=== PATIENT | female | born 1970 | race Hispanic/Latino ===

== ENCOUNTER 2021-05-12 21:48 | Emergency (ER) | payer SELFPAY ==
--- OUTSIDE RECORDS SUMMARY | 2021-05-12 21:51 | XMS REPORT | Continuity of Care Document ---
:1970 Author Organization [facility] t Address [facility] [address] [place] [address] Care Team Providers Name Role Phone JONO, Chai Primary Care Physician Unavailable JONO A Attending Clinician Unavailable Chai JAMESON Attending Clinician Unavailable Chai Schafer Attending Clinician Fidencio GOMEZ III Attending Clinician Unavailable ROSEMARIE Attending Clinician Unavailable Payers Payer Name Policy Type Policy Number Effective Date Expiration Date [id number] 2020 00:00:00 OUT OF STATE Problems Condition Condition Condition Status Onset Resolution Last Treating Co mments Source Name Details Category Date Date Treatment Clinician Date Gastroesop Gastroesop Disease Active 2019-0 U nivers hageal hageal 4-20 ity of reflux reflux 00:00: [place] disease, disease, 00 Medica l esophagiti esophagiti Br anch s presence s presence not not specified specified Upper back Upper back Disease Active 2020-0 U nivers pain pain 4-20 ity of 00:00: [place] [address] Medical Branch Epicondyli Epicondyli Disease Active 2019-0 U nivers tis elbow, tis elbow, 5-02 it y of medial, medial, 00:00: [place] right right 00 Medical Branch Prediabete Prediabete Disease Active 2016-03 U nivers s s 2-21 ity of 00:00: [place] 00 Medical Branch Hyperchole Hyperchole Disease Active 2016-03 U nivers sterolemia sterolemia 2-21 it y of 00:00: [place] [address] Medical Branch Urinary Urinary Disease Active Univers frequency frequency 9-09 ity of 00:00: [place] 00 Medical Branch Insomnia, Insomnia, Disease Active Uni vers unspecifie unspecifie 9-07 it y of d type d type 00:00: [place] [address] [facility] Branch Vasomotor Vasomotor Disease Active Uni vers symptoms symptoms 12-03 ity of due to due to 00:00: [place] menopause menopause 00 [facility] Branch Anxiety Anxiety Disease Active Univers disorder, disorder, 12-03 it[place]spec[place] 00 [facility] Postmenopa Postmenopa Disease Active U nivers usal usal 10-24 ity of 00:00: [place] [address] [facility] Branch Uterine Uterine Disease Active Univers leiomyoma, leiomyoma, 10-24 it y of unspecifie [place] dical Branch History of History of Disease Active U nivers anemia anemia 10-24 ity of 00:00: [place] 00 [facility] Allergies, Adverse Reactions, Alerts Allergy Allergy Status Severity Reaction(s) Onset Inactive Treating Comm ents Source Name Type Date Date Clinician NO KNOWN Drug Active Univers ALLERGIE Class ity of S [facility] Social History Social Habit Start Date Stop Date Quantity Comments Source Exposure to Yes [facility] SARS-CoV-2 (event) Medica l Branch Alcohol intake 2021-04-03 2021-04-03 0 /d [facility] 00:00:00 00:00:00 [facility] Sex Ass[birth year] At [birth year] [facility] y of [place] 00:00:00 00:00:00 [facility] Smoking Status Start Date Stop Date Source Never smoker [facility] Medications Ordered Filled Start Stop Current Ordering Indication Dosage Frequency Signature Comments Components Source Medication Medication Date Date Medication? Clinician (SIG) Name Name benzonatate Yes [id number] 100mg Take 1 Univers (TESSALON 1-06 capsule by itDeb) 100 00:00: mouth [place] mg capsule 00 every 8 Medica l (eight) Branch hours as needed for Cough. azelastine Yes [id number] 1{spray Use 1 Univers 137 mcg 1-06 } Chana in ity of (0.1 %) 00:00: each [place] nasal spray 00 nostril 2 Med ical (two) Branch times daily. Use in each nostril as directed benzonatate Yes [id number] 100mg Take 1 Univers (TESSALON 1-06 capsule by itfilemon of PERLWebcrumbz) 100 00:00: mouth [place] mg capsule 00 every 8 Medica l (eight) Branch hours as needed for Cough. azelastine Yes [id number] 1{spray Use 1 Univers 137 mcg 1-06 } Chana in ity of (0.1 %) 00:00: each [place] nasal spray 00 nostril 2 Med ical (two) Branch times daily. Use in each nostril as directed benzonatate Yes [id number] 100mg Take 1 Univers (TESSALON 1-06 capsule by ity of [employer]crumbz) 100 00:00: mouth [place] mg capsule 00 every 8 Medica l (eight) Branch hours as needed for Cough. azelastine Yes [id number] 1{spray Use 1 Univers 137 mcg 1-06 } Chana in ity of (0.1 %) 00:00: each [place] nasal spray 00 nostril 2 Med ical (two) Branch times daily. Use in each nostril as directed Immunizations Ordered Filled Immunization Date Status Comments [facility] e Immunization Name Name SARS-COV-2 COVID-19 2020-07-22 Completed Unive rsity of MODERNA VACCINE 00:00:00 [facility] SARS-COV-2 COVID-19 2020-07-22 Completed Unive rsity of MODERNA VACCINE 00:00:00 [facility] SARS-COV-2 COVID-19 2020-07-22 Completed Unive rsity of MODERNA VACCINE 00:00:00 [facility] SARS-COV-2 COVID-19 2020-06-24 Completed Unive rsity of MODERNA VACCINE 00:00:00 [facility] SARS-COV-2 COVID-19 2020-06-24 Completed Unive rsity of MODERNA VACCINE 00:00:00 [facility] SARS-COV-2 COVID-19 2020-06-24 Completed Unive rsity of MODERNA VACCINE 00:00:00 [facility] TDAP 2012-03-29 Completed University 00:00:00 [facility] TDAP 2012-03-29 Completed [facility] 00:00:00 [facility] TDAP 2012-03-29 Completed University of 00:00:00 [facility] Vital Signs Vital Name Observation Time Observation Value Comments Source Systolic blood 2021-04-03 20:07:00 132 mm[Hg] Univer sity of pressure [facility] Diastolic blood 2021-04-03 20:07:00 82 mm[Hg] Unive rsity of pressure [facility] Heart rate 2021-04-03 20:07:00 85 /min [facility] Body temperature 2021-04-03 20:07:00 [facility].94 [facility] height 2021-04-03 20:07:00 154.9 cm [facility] Body weight 2021-04-03 20:07:00 54.976 kg [facility] BMI 2021-04-03 20:07:00 22.90 kg/m2 [facility] Oxygen saturation in 2021-04-03 20:07:00 97 /min [facility] Arterial blood by [facility] Pulse oximetry Branch Procedures This patient has no known procedures. Encounters Start End Encounter Admission Attending Care Care Encounter Source Date/Time Date/Time Type Type Clinicians Facility Department ID 2021-05-02 2021-05-02 Outpatient Michelle DE LA CRUZ [facility] [id number] Univers 13:45:00 13:45:00 WONDIFUL [id number] ity o f [facility] 2021-05-02 2021-05-02 Outpatient Michelle DE LA CRUZ [facility] [id number] Univers 13:45:00 13:45:00 WONDIFUL ity o f [facility] 2021-04-30 2021-04-30 Outpatient Michelle JAMESON [facility] [id number] Univers 11:30:00 11:30:00 [facility] [id number] [facility] 2021-04-30 2021-04-30 Outpatient Michelle JAMESON [facility] [id number] Univers 11:30:00 11:30:00 CHELSEY [facility] 2021-04-03 2021-04-03 Outpatient Michelle JAMESON [facility] [id number] Univers 14:54:49 23:59:00 CHELSEY [facility] 2021-04-03 2021-04-03 [facility] [id number] Univers 14:54:49 23:59:00 Encounter Chelsey Paula [facility]ALTH [id number] ity of [facility] [id number] Demian as CHENCHO?BLEA [id number] Tn kecia HOL[address] MEDICAL OFFICE [facility] 2021-04-03 2021-04-03 Office [facility] [id number] Univers 14:00:00 14:52:04 Visit Chelsey Paula HEALTH [id number] i ty of [place] [id number] Demian as CHENCHO?BLEA [id number] Tn kecia HOLDER [address] [facility] OFFICE [facility] 2021-04-02 2021-04-02 Outpatient Michelle GOMEZ III [facility] [id number] Univers 12:15:00 12:30:13 ISAAK ramirez [facility] 2021-04-01 2021-04-01 Outpatient Michelle HOUSTON [facility] [id number] Univers 09:00:00 09:00:00 PRIYA ramirez [facility] Results This patient has no known results.
[2021-05-12] MEDS ORDERED: ONDANSETRON 4 MG/2 ML VIAL ONE (22:48)
[2021-05-12] MEDS ORDERED: MECLIZINE HCL 12.5 MG TAB ONE (22:48)
[2021-05-12 23:22] LABS: Protime INR 1.02
[2021-05-12 23:28] LABS: Absolute Lymphocytes (CBC) 1.5 K/uL (0.7-4.9); Hematocrit 38.3 % (36.0-45.0); Lymphocytes % 14.5 % (15.3-44.8); MPV 7.6 fL (7.6-11.3); RBC Red Blood Cell Count 4.36 M/uL (3.86-4.86)
[2021-05-12 23:31] LABS: ALT/SGPT 22 U/L (12-78); AST/SGOT 13 U/L (15-37); Albumin 4.2 g/dL (3.4-5.0); Alkaline Phosphatase 82 U/L (45-117); BUN Blood Urea Nitrogen 18 mg/dL (7-18); Bicarbonate 27 mmol/L (21-32); Bilirubin Direct < 0.1 mg/dL (0-0.2); Bilirubin Total 0.3 mg/dL (0.2-1.0); Glucose Level 127 mg/dL (74-106); Magnesium 2.3 mg/dL (1.8-2.4); NT PRO-BNP 55 pg/mL (<125); Potassium 3.7 mmol/L (3.5-5.1); Protein, Total 7.9 g/dL (6.4-8.2); Sodium Level 135 mmol/L (136-145)
--- NOTE | 2021-05-13 00:09 | ER ---
Nurse's Notes [facility] Name: Nai Weber Age: 51 yrs Sex: Female : 1970 Arrival Date: 05/12/2021 Time: 21:52 Bed 6 Private MD: Diagnosis: Benign paroxysmal vertigo, left ear Presentation: 05/12 22:11 Chief complaint: Patient states: Dizziness since 5pm, with nausea. Burning in the st1 epigastric area which occurs after she eats. Coronavirus screen: Vaccine status: Patient reports receiving the 2nd dose of the covid vaccine. Moderna. Ebola Screen: No symptoms or risks identified at this time. Initial Sepsis Screen: Does the patient meet any 2 criteria? No. Patient's initial sepsis screen is negative. Risk Assessment: Do you want to hurt yourself or someone else? Patient reports no desire to harm self or others. 22:13 Method Of Arrival: Ambulatory st 22:13 Acuity: BHANU 3 st1 05/13 00:14 Initial Sepsis Screen: Does the patient have a suspected source of infection? No. as6 Patient's initial sepsis screen is negative. Onset of symptoms is unknown. Triage Assessment: 05/12 22:15 General: Appears in no apparent distress. comfortable, Behavior is calm, cooperative. st1 LICENSED OPTICIAN: 05/13 00:14 LMP N/A - NA as6 Historical: - Allergies: 05/12 22:14 No Known Allergies; st1 - PMHx: 22:14 None; st1 - Immunization history:: Adult Immunizations up to date, Flu vaccine is up to date. - Social history:: Patient/guardian denies using alcohol, street drugs, IV drugs, Smoking status: unknown. Screenin:11 Abuse screen: Denies threats or abuse. Denies injuries from another. Nutritional as6 screening: No deficits noted. Tuberculosis screening: No symptoms or risk factors identified. Fall Risk None identified. Assessment: 23:09 General: Appears in no apparent distress. comfortable, Behavior is calm, cooperative. as6 Pain: Denies pain. Neuro: Level of Consciousness is awake, alert, obeys commands, Oriented to person, place, time, situation. Cardiovascular: Capillary refill < 3 seconds Patient's skin is warm and dry. Respiratory: Airway is patent Trachea midline Respiratory effort is even, unlabored, Respiratory pattern is regular, symmetrical. Derm: Skin is intact. 23:10 General: pt initial complaint dizziness and nausea. at time of assessment pt denies as6 both. refused medications . Vital Signs: 22:13 BP 131 / 93; Pulse 89; Resp 16; Temp 97.4; Pulse Ox 100% on R/A; Weight 55.34 kg; st1 Height 5 ft. 1 in. (154.94 cm); Pain /; 23:08 BP 141 / 89; Pulse 76; Resp 20 S; Pulse Ox 100% on R/A; as6 23:53 BP 132 / 86; Pulse 83; Resp 18 S; Pulse Ox 100% on R/A; as6 22:13 Body Mass Index 23.05 (55.34 kg, 154.94 cm) st1 ED Course: 21:52 Patient arrived in ED. es 22:13 Triage completed. st1 22:15 Arm band placed on left wrist. st1 22:20 John Palma, MARLENE is Primary Nurse. as6 22:21 Shabbir Ho NP is PHCP. pm1 22:21 Avery Diggs MD is Attending Physician. pm1 22:56 XRAY Chest (1 view) In Process Unspecified. EDMS 23:11 Inserted saline lock: 20 gauge in right antecubital area, using aseptic technique. as6 Blood collected. 23:12 Placed in gown. Bed in low position. Call light in reach. Side rails up X2. Cardiac as6 monitor on. Pulse ox on. NIBP on. Warm blanket given. 23:13 CT Head Brain wo Cont In Process Unspecified. EDMS 05/13 00:14 No provider procedures requiring assistance completed. as6 00:26 IV discontinued, intact, bleeding controlled, No redness/swelling at site. Pressure as6 dressing applied. Administered Medications: 05/12 23:00 Not Given (Patient Refused): Meclizine 50 mg PO once as6 23:00 Not Given (Patient Refused): Zofran (Ondansetron) 4 mg IVP once; over 2 minutes as6 Outcome: 05/13 00:09 Discharge ordered by . pm1 00:26 Discharged to home ambulatory. as6 00:26 Condition: stable 00:26 Discharge instructions given to patient, Instructed on discharge instructions, follow up and referral plans. medication usage, Demonstrated understanding of instructions, follow-up care, medications, Prescriptions given X 2. 00:26 Patient left the ED. as6 Signatures: Dispatcher [employer] Lashawn Sandra Patrick INTERIOR DESIGN TEACHER INTERIOR DESIGN TEACHER pm1 John Palma RN RN as6 Sera Melo RN RN st1 Corrections: (The following items were deleted from the chart) 05/12 22:13 22:11 Method Of Arrival: Ambulatory st1 st1
--- NOTE | 2021-05-13 00:10 | EDPHYS ---
Physician Documentation [facility] Name: Nai Weber Age: 51 yrs Sex: Female : 1970 Arrival Date: 05/12/2021 Time: 21:52 Bed 6 Private MD: ED Physician Avery Diggs HPI: 05/12 22:39 This 51 yrs old Female presents to ER via Ambulatory with complaints of pm1 Dizziness, Nausea, Chest Pressure, Arm Pain. 22:39 The patient presents with dizziness. Onset: The symptoms/episode began/occurred 5 pm1 day(s) ago. Context: just prior to the episode the patient experienced left ear tinnitus. Modifying factors: The symptoms are alleviated by holding head still, lying down, the symptoms are aggravated by movement of head, changing position. Associated signs and symptoms: Pertinent negatives: abdominal pain, chest pain, shortness of breath. Severity of symptoms: in the emergency department the symptoms have improved. Patient's baseline: Neuro: alert and fully oriented, Motor: no deficits, Ambulation: walks without assistance, Speech: normal. The patient has not experienced similar symptoms in the past. The patient has not recently seen a physician. SENIOR C WEB DEVELOPER: 05/13 00:14 LMP N/A - NA as6 Historical: - Allergies: 05/12 22:14 No Known Allergies; st1 - PMHx: 22:14 None; st1 - Immunization history:: Adult Immunizations up to date, Flu vaccine is up to date. - Social history:: Patient/guardian denies using alcohol, street drugs, IV drugs, Smoking status: unknown. ROS: 22:39 Constitutional: Negative for fever, chills, and weight loss, Respiratory: Negative for pm1 shortness of breath, cough, wheezing, and pleuritic chest pain. 22:39 : Negative for injury, bleeding, discharge, and swelling, MS/Extremity: Negative for injury and deformity, Skin: Negative for injury, rash, and discoloration. 22:39 Cardiovascular: Positive for chest pain. 22:39 Abdomen/GI: Positive for nausea. 22:39 Neuro: Positive for dizziness, Negative for headache, numbness, tingling. 22:39 All other systems are negative. Exam: 22:39 Constitutional: This is a well developed, well nourished patient who is awake, alert, pm1 and in no acute distress. Head/Face: Normocephalic, atraumatic. 22:39 Abdomen/GI: Soft, non-tender, with normal bowel sounds. No distension or tympany. No guarding or rebound. No evidence of tenderness throughout. 22:39 Skin: Warm, dry with normal turgor. Normal color with no rashes, no lesions, and no evidence of cellulitis. MS/ Extremity: Pulses equal, no cyanosis. Neurovascular intact. Full, normal range of motion. 22:39 Eyes: Exam is negative for acute changes, Extraocular movements: no acute changes, Conjunctiva: no acute changes, Corneas: no acute changes, Sclera: no acute changes, icterus, is not appreciated, Nystagmus: bilateral with when looking right. 22:39 ENT: External ear(s): are unremarkable, Ear canal(s): are normal, TM's: are normal, Mouth: Lips: normal, moist, Oral mucosa: normal, pink and intact, moist. 22:39 Cardiovascular: Exam negative for acute changes, Rate: normal, Rhythm: regular, Pulses: no pulse deficits are appreciated, Heart sounds: normal, normal S1and S2. 22:39 Respiratory: Exam negative for acute changes, respiratory distress, shortness of breath, Breath sounds: are clear throughout. 22:39 Neuro: Exam negative for acute changes, Orientation: is normal, Mentation: is normal, Motor: is normal, moves all fours. Vital Signs: 22:13 BP 131 / 93; Pulse 89; Resp 16; Temp 97.4; Pulse Ox 100% on R/A; Weight 55.34 kg; st1 Height 5 ft. 1 in. (154.94 cm); Pain 1/10; 23:08 BP 141 / 89; Pulse 76; Resp 20 S; Pulse Ox 100% on R/A; as6 23:53 BP 132 / 86; Pulse 83; Resp 18 S; Pulse Ox 100% on R/A; as6 22:13 Body Mass Index 23.05 (55.34 kg, 154.94 cm) st1 MDM: 22:22 Patient medically screened. [facility] 05/13 00:08 Data reviewed: vital signs. Data interpreted: Pulse oximetry: on room air is 100 %. pm1 Interpretation: normal. Counseling: I had a detailed discussion with the patient and/or guardian regarding: the historical points, exam findings, and any diagnostic results supporting the discharge/admit diagnosis, lab results, radiology results, the need for outpatient follow up, to return to the emergency department if symptoms worsen or persist or if there are any questions or concerns that arise at home. 05/12 22:37 Order name: Basic Metabolic Panel; Complete Time: 23:54 pm1 05/12 22:37 Order name: CBC with Diff; Complete Time: 23:54 pm1 05/12 22:37 Order name: LFT's; Complete Time: 23:54 pm1 05/12 22:37 Order name: Magnesium; Complete Time: 23:54 pm1 05/12 22:37 Order name: NT PRO-BNP; Complete Time: 23:54 pm1 05/12 22:37 Order name: PT-INR; Complete Time: 23:28 pm05/12 22:37 Order name: Troponin HS; Complete Time: 23:54 pm1 05/12 22:37 Order name: XRAY Chest (1 view) pm05/12 22:37 Order name: EKG; Complete Time: 22:38 pm05/12 22:37 Order name: Cardiac monitoring; Complete Time: 23:00 pm05/12 22:37 Order name: EKG - Nurse/Tech; Complete Time: 22:40 pm05/12 22:37 Order name: CT Head Brain wo Cont pm05/12 22:37 Order name: IV Saline Lock; Complete Time: 23:00 pm1 05/12 22:37 Order name: Labs collected and sent; Complete Time: 23:00 pm05/12 22:37 Order name: O2 Per Protocol; Complete Time: 23:00 pm05/12 22:37 Order name: O2 Sat Monitoring; Complete Time: 23:00 pm1 Administered Medications: 05/12 23:00 Not Given (Patient Refused): Meclizine 50 mg PO once as6 23:00 Not Given (Patient Refused): Zofran (Ondansetron) 4 mg IVP once; over 2 minutes as6 Disposition: 05/13 08:59 Co-signature as Attending Physician, Avery Diggs MD I agree with the assessment and susana plan of care. Disposition Summary: 05/13/21 00:09 Discharge Ordered Location: Home pm1 Problem: new pm1 Symptoms: have improved pm1 Condition: Stable pm1 Diagnosis - Benign paroxysmal vertigo, left ear pm1 Followup: pm1 - With: Emergency Department - When: As needed - Reason: Worsening of condition Followup: pm1 - With: Private Physician - When: 2 - 3 days - Reason: Recheck today's complaints, Continuance of care, Re-evaluation by your physician Discharge Instructions: - Discharge Summary Sheet pm1 - Benign Positional Vertigo pm1 Forms: - Medication Reconciliation Form pm1 - Thank You Letter pm1 - Antibiotic Education pm1 - Prescription Opioid Use pm1 - Work release form as6 Prescriptions: - Meclizine 25 mg Oral Tablet - take 1 tablet by ORAL route every 8 hours As needed; 30 tablet; Refills: 0, pm1 Product Selection Permitted - Zofran 4 mg Oral Tablet - take 1 tablet by ORAL route every 12 hours As needed; 20 tablet; Refills: 0, pm1 Product Selection Permitted Signatures: Dispatcher [employer] EDAvery Sequeira MD MD cha Marinas, Patrick, AUTO RENTAL CLERK AUTO RENTAL CLERK pm1 John Palma, MARLENE RN as6 Sera Melo RN RN st1
[2021-05-13 01:05] VITALS: TEMP 97.4; O2SAT 100
[2021-05-13 01:08] VITALS: BP 132/86
--- NOTE | 2021-05-13 08:47 | RAD REPORT ---
EXAM DESCRIPTION: RAD - Chest Single View - 05/12/2021 10:56 pm CLINICAL HISTORY: Dizziness COMPARISON: Two view chest 03/15/2012 TECHNIQUE: AP portable chest image was obtained 05/12/2021 10:56 pm . FINDINGS: No focal mass or consolidation. Slight increase in the interstitial pattern is probably th e affects of portable 8 PA technique versus prior two view PA technique. Heart size is normal. Pulmon rebeca vasculature not outside of range of normal. No measurable pleural effusion and no pneumothorax. N o acute bony abnormality seen. No acute aortic findings suspected. IMPRESSION: No acute cardiopulmonary process. No significant change from comparison study.
--- NOTE | 2021-05-13 10:15 | EKG ---
Test Date: 2021-05-12 Test Time: 22:25:36 Middle [employer] Science Teacher: CASE MEASUREMENT RESULTS: Intervals: Rate: 0 MN: QRSD: 0 QT: 0 QTc: 0 [place]: P: MN: QRS: 0 T: 0 INTERPRETIVE STATEMENTS: No QRS complexes found, no ECG analysis possible No previous ECG available for comparison Electronically Signed On 05-13-21 10:14:24 DEEP FRYER ASSEMBLER by Sammy Valdez
--- NOTE | 2021-05-13 10:15 | EKG ---
Test Date: 2021-05-12 Test Time: 22:26:18 Retail Selling Floor Leader: CASE MEASUREMENT RESULTS: Intervals: Rate: 83 CT: 170 QRSD: 80 QT: 366 QTc: 430 [place]: P: 68 CT: 170 QRS: 65 T: 37 INTERPRETIVE STATEMENTS: Normal sinus rhythm Normal ECG Compared to ECG 05/12/2021 22:25:36 No significant changes Electronically Signed On 05-13-21 10:14:24 ILLUMINATOR by Sammy Valdez
--- NOTE | 2021-05-13 10:59 | RAD REPORT ---
EXAM DESCRIPTION: CT - Head Brain Wo Cont - 05/13/2021 6:28 am CLINICAL HISTORY: 51 years Female DIZZINESS COMPARISON: None. TECHNIQUE: Contiguous axial CT images obtained through the brain without IV contrast. This exam was performed according to our department optimization program which includes automated exp osure control, adjustment of the mA and/or kv according to patient size and/or use of iterative recon struction technique. FINDINGS: The ventricles and sulci appear unremarkable. No abnormal areas of decreased density are identified. No mass lesions. There is a partially empty sella. No acute hemorrhage. No fluid or significant mucosal thickening in the visualized paranasal sinuses. No depressed calvarial fractures. IMPRESSION: No acute intracranial abnormality is identified. If there is clinical concern for the po ssibility of acute ischemic change, MRI could be obtained to better evaluate. Electronically signed by: Genaro Styles MD 05/12/2021 11:31 PM CONTACT CENTER REPRESENTATIVE Due to temporary technical issues with the PACS/Fluency reporting system, reports are being signed by the in house radiologist without review as a courtesy to ensure prompt reporting. The interpreting r adiologist is fully responsible for the content of the report.
== END 2021-05-13 00:26 | disposition home or self-care (01) ==
LOC: ER 21:48
DX: H81.12 Benign paroxysmal vertigo, left ear (principal)
CPT/HCPCS: 36415; 70450; 71045; 80048; 80076; 83735; 83880; 84484; 85025; 85610; 93005; 99284; J2405; J8597

== ENCOUNTER 2023-01-25 16:26 | Emergency (ER) | payer BC ==
--- OUTSIDE RECORDS SUMMARY | 2023-01-25 16:30 | XMS REPORT | Continuity of Care Document ---
:1970 Author Organization [facility] [place] [facility] t Address [address] [place] [address] Care Team Providers Name Role Phone Lamar Galarza MD Primary Care Physician LAMAR GALARZA Attending Clinician Unavailable LAMAR GALARZA Attending Clinician Unavailable Doctor Unassigned, [place] Attending Clinician Unavailable LORIE SEPULVEDA Attending Clinician Unavailable Lab, Ang - Db Attending Clinician Unavailable RAQUEL ALVAREZ Attending Clinician Unavailable Arthur June Attending Clinician Unavailable MIMI MAYO Attending Clinician Unavailable MIMI MAYO Attending Clinician Unavailable Lorie Oliveira Attending Clinician MAX PEREZ Attending Clinician Unavailable CHELSEY JAMESON Attending Clinician Unavailable Jasmine De La Cruz MD Attending Clinician Team, [facility] Attending Clinician Unavailabl e Vaccine, Ang Db Cbc Fam Attending Clinician Unavailable JASMINE DE LA CRUZ Attending Clinician Unavailable Chelsey Schafer Attending Clinician ISAAK BRADEN III Attending Clinician Unavailable Only, Rashaad Brooks Test Attending Clinician Unavailable Isaak Braden MD Attending Clinician PRIYA HOUSTON Attending Clinician Unavailable Jessica Rojas Attending Clinician JESSICA MARTINEZ Attending Clinician Unavailable LORIE SEPULVEDA Admitting Clinician Unavailable Payers Payer Name Policy Type Policy Number Effective Date Expiration Date S teresa [employer] [place] - [id number] 2020 00:00:00 OUT OF STATE BCBS 2 [id number] 2021 00:00:00 GUSTAVO Jena [id number] 2016 00:00:00 Problems Condition Condition Condition Status Onset Resolution Last Treating Co mments Source Name Details Category Date Date Treatment Clinician Date Acute Acute Disease Active Univers nonintract nonintract 1-30 it y of able able 00:00: [place] headache, headache, 00 Medi saritha unspecifie unspecifie Br anch d headache d headache type type Dizziness Dizziness Disease Active Uni vers 1-30 ity of 00:00: [place] [facility] Inner ear Inner ear Disease Active Uni vers dysfunctio dysfunctio 30 it y of n, left n, left 00:00: [place] 00 Medical Branch Screening Screening Disease Active Uni vers for for 8-26 ity of colorectal colorectal 00:[place] cancer cancer [facility] Abdominal Abdominal Disease Active Uni vers swelling swelling 8-26 ity of 00:00: [place] [facility] Otalgia of Otalgia of Disease Active U nickers right ear right ear 7-08 ity of 00:00: [place] [facility] Elevated Elevated Disease Active Unive rs blood blood 7-08 ity of pressure pressure 00:00: [place] reading in reading in 00 Nv dical office office Branch without without diagnosis diagnosis of of hypertensi hypertensi on on Gastroesop Gastroesop Disease Active 2019- U nivers hageal hageal 4-20 ity of reflux reflux 00:00: [place] disease, disease, 00 Medica l esophagiti esophagiti Br anch s presence s presence not not specified specified Upper back Upper back Disease Active 2019- U irena pain pain 4-20 ity of 00:00: [place] 00 Medical Branch Epicondyli Epicondyli Disease Active U nivers tis elbow, tis elbow, 5-02 it y of medial, medial, 00:00: [place] right right 00 Medical Branch Prediabete Prediabete Disease Active 2016-03 U nivers s s 2-21 ity of 00:00: [place] 00 [facility] Branch Hyperchole Hyperchole Disease Active 2016-03 U nivers sterolemia sterolemia 2-21 it y of 00:00: [place] [facility] Branch Urinary Urinary Disease Active Univers frequency frequency 12-05 ity of 00:00: [place] 00 [facility] Insomnia, Insomnia, Disease Active Uni vers unspecifie unspecifie 12-03 it y of d type d type 00:00: [place] [facility] Vasomotor Vasomotor Disease Active Uni vers symptoms symptoms 12-03 ity of due to due to 00:00: [place] menopause menopause 00 [facility] Anxiety Anxiety Disease Active Univers disorder, disorder, 12-03 ity of unspecifie unspecifie [place] d type [facility] Postmenopa Postmenopa Disease Active U nivers usal usal 10-24 ity of 00:00: [place] [facility] Uterine Uterine Disease Active Univers leiomyoma, leiomyoma, 10-24 it y of unspecifie unspecifie [place] location 00 [facility] History of History of Disease Active U nivers anemia anemia 10-24 ity of 00:00: [place] 00 [facility] Allergies, Adverse Reactions, Alerts Allergy Allergy Status Severity Reaction(s) Onset Inactive Treating Comm ents Source Name Type Date Date Clinician NO KNOWN Drug Active Univers ALLERGIE Class ity of S [facility] [place] [facility] Social History Social Habit Start Date Stop Date Quantity Comments Source [facility] 2023-01-25 2023-01-25 0 /d University of 00:00:00 00:00:00 [facility] [place] [facility] History of Social 2022-12-24 2022-12-24 Univers ity of function 00:00:00 00:00:00 [facility] [place] [facility] Exposure to 2022-04-17 2022-04-27 Not sure [facility] SARS-CoV-2 (event) 00:00:00 10:22:00 [facility] [place] [facility] Tobacco use and 2022-04-27 2022-04-27 Smokeless Universit y of exposure 00:00:00 00:00:00 tobacco non-user [facility] Sex Ass[birth year] At [birth year] Universit y of 00:00:00 00:00:00 [facility] [place] [facility] Smoking Status Start Date Stop Date Source Never smoked tobacco [facility] Medications Ordered Filled Start Stop Current Ordering Indication Dosage Frequency Signature Comments Components Source Medication Medication Date Date Medication? Clinician (SIG) Name Name Omeprazole 2022-03 Yes 20mg Take 1 Unive rs 20 mg 0-27 tablet by ity of tablet 10:45: mouth in [place] the Medical morning. Branch Omeprazole 2022-03 Yes 20mg Take 1 Unive rs 20 mg 0-27 tablet by ity of tablet 10:45: mouth in [place] the Medical morning. Branch Omeprazole 2022-03 Yes 20mg Take 1 Unive rs 20 mg 0-27 tablet by ity of tablet 10:45: mouth in [place] the Medical morning. Branch ibuprofen 2022-03 Yes [id number] 800mg Take 1 Univers 800 mg 0-27 tablet by ity of tablet 00:00: mouth [place] 00 every 8 Medical (eight) Branch hours as needed for Pain (scale 4-6) (with meals). tiZANidine 2022-03 Yes [id number] 2mg Take 1 Univers 2 mg tablet 0-27 tablet by ity of 00:00: mouth [place] 00 every 6 Medical (six) Branch hours as needed for Pain (scale 4-6). ibuprofen 2022-03 Yes [id number] 800mg Take 1 Univers 800 mg 0-27 tablet by ity of tablet 00:00: mouth [place] 00 every 8 Medical (eight) Branch hours as needed for Pain (scale 4-6) (with meals). tiZANidine 2022-03 Yes [id number] 2mg Take 1 Univers 2 mg tablet 0-27 tablet by ity of 00:00: mouth [place] 00 every 6 Medical (six) Branch hours as needed for Pain (scale 4-6). ibuprofen 2022-03 Yes [id number] 800mg Take 1 Univers 800 mg 0-27 tablet by ity of tablet 00:00: mouth [place] 00 every 8 Medical (eight) Branch hours as needed for Pain (scale 4-6) (with meals). tiZANidine 2022-03 Yes [id number] 2mg Take 1 Univers 2 mg tablet 0-27 tablet by ity of 00:00: mouth [place] 00 every 6 Medical (six) Branch hours as needed for Pain (scale 4-6). dimenhyDRIN 2022-0 2023- No Take by Un junior ATE 12-24 mouth. ity of (DRAMAMINE) 12:26: 00:00 [place] 25 mg Chew 39 :00 Medical Branch dimenhyDRIN 2023-0 3- No Take by Un junior ATE 12-24 mouth. ity of (DRAMAMINE) 12:26: 00:00 [place] 25 mg Chew 39 :00 Medical Branch tiZANidine 2023-0 Yes [id number] 2mg Take 1 Univers 2 mg tablet 9-28 tablet by ity of 00:00: mouth [place] 00 every 6 Medical (six) Branch hours as needed for Pain (scale 4-6). tiZANidine 2023-0 Yes [id number] 2mg Take 1 Univers 2 mg tablet 9-28 tablet by ity of 00:00: mouth [place] 00 every 6 Medical (six) Branch hours as needed for Pain (scale 4-6). tiZANidine 3-0 Yes [id number] 2mg Take 1 Univers 2 mg tablet 9-28 tablet by ity of 00:00: mouth [place] 00 every 6 Medical (six) Branch hours as needed for Pain (scale 4-6). tiZANidine 2023-0 Yes [id number] 2mg Take 1 Univers 2 mg tablet 9-28 tablet by ity of 00:00: mouth [place] 00 every 6 Medical (six) Branch hours as needed for Pain (scale 4-6). tiZANidine 2023-0 Yes [id number] 2mg Take 1 Univers 2 mg tablet 9-28 tablet by ity of 00:00: mouth [place] 00 every 6 Medical (six) Branch hours as needed for Pain (scale 4-6). tiZANidine 2023-0 2023- No [id number] 2mg Take 1 Univers 2 mg tablet 9-28 10-27 tablet by it y of 00:00: 00:00 mouth [place] 00 :00 every 6 Medical (six) Branch hours as needed for Pain (scale 4-6). tiZANidine 2023-0 2023- No [id number] 2mg Take 1 Univers 2 mg tablet 9-28 10-27 tablet by it y of 00:00: 00:00 mouth [place] 00 :00 every 6 Medical (six) Branch hours as needed for Pain (scale 4-6). ibuprofen 2023-0 2023- No 200mg Take 200 Un junior (ADVIL) 200 1-30 01-30 mg by ity of mg tablet 11:31: 00:00 mouth [place] 38 :00 every 6 Medical (six) Branch hours as needed. ibuprofen 2023-0 2023- No 200mg Take 200 Un junior (ADVIL) 200 1-30 01-30 mg by ity of mg tablet 11:31: 00:00 mouth [place] 38 :00 every 6 Medical (six) Branch hours as needed. dimenhyDRIN 2023-0 Yes Take by Uni vers ATE 1-30 mouth. ity of (DRAMAMINE) 11:18: [place] 25 mg Chew 22 Medical Branch dimenhyDRIN 3-0 Yes Take by Uni vers ATE 1-30 mouth. ity of (DRAMAMINE) 11:18: [place] 25 mg Chew 22 Medical Branch dimenhyDRIN 3-0 Yes Take by Uni vers ATE 1-30 mouth. ity of (DRAMAMINE) 11:18: [place] 25 mg Chew 22 Medical Branch dimenhyDRIN 3-0 Yes Take by Uni vers ATE 1-30 mouth. ity of (DRAMAMINE) 11:18: [place] 25 mg Chew 22 Medical Branch tiZANidine 2023-0 Yes [id number] 2mg Take 1 Univers 2 mg tablet 1-30 tablet by ity of 00:00: mouth [place] 00 every 6 Medical (six) Branch hours as needed for Pain (scale 4-6). tiZANidine 2023-0 Yes [id number] 2mg Take 1 Univers 2 mg tablet 1-30 tablet by ity of 00:00: mouth [place] 00 every 6 Medical (six) Branch hours as needed for Pain (scale 4-6). tiZANidine 2023-0 Yes [id number] 2mg Take 1 Univers 2 mg tablet 1-30 tablet by ity of 00:00: mouth [place] 00 every 6 Medical (six) Branch hours as needed for Pain (scale 4-6). tiZANidine 2023-0 Yes [id number] 2mg Take 1 Univers 2 mg tablet 1-30 tablet by ity of 00:00: mouth [place] 00 every 6 Medical (six) Branch hours as needed for Pain (scale 4-6). tiZANidine 2023-0 2023- No [id number] 2mg Take 1 Univers 2 mg tablet 04-27 tablet by it y of 00:00: 00:00 mouth [place] 00 :00 every 6 Medical (six) Branch hours as needed for Pain (scale 4-6). tiZANidine 2022- No [id number] 2mg Take 1 Univers 2 mg tablet 04-27 tablet by it y of 00:00: 00:00 mouth [place] 00 :00 every 6 Medical (six) Branch hours as needed for Pain (scale 4-6). hydrOXYzine 2022- No [id number] 25mg Take 1 Univers 25 mg 04-27- tablet by ity of tablet 00:00: 04:59 mouth at [place] 00 :00 bedtime Medical for 60 Branch days. hydrOXYzine 2022- No [id number] 25mg Take 1 Univers 25 mg 04-27- tablet by ity of tablet 00:00: 04:59 mouth at [place] 00 :00 bedtime Medical for 60 Branch days. ibuprofen 2022- No [id number] 600mg Take 1 Univers 600 mg 04-27-14 tablet by ity of tablet 00:00: 05:59 mouth [place] 00 :00 every 6 Medical (six) Branch hours as needed for Temp > 38.5 C for up to 14 days. ibuprofen 2022- No [id number] 600mg Take 1 Univers 600 mg 04-27-14 tablet by ity of tablet 00:00: 05:59 mouth [place] 00 :00 every 6 Medical (six) Branch hours as needed for Temp > 38.5 C for up to 14 days. busPIRone 2021- No [id number] 10mg Take 1 Univers 10 mg 8-22 12- tablet by ity of tablet 00:00: 04:59 mouth 2 [place] 00 :00 (two) Medical times Branch daily as needed (anxiety) for up to 30 days. busPIRone 2021- No [id number] 10mg Take 1 Univers 10 mg 8-26 - tablet by ity of tablet 00:00: 04:59 mouth 2 [place] 00 :00 (two) Medical times Branch daily as needed (anxiety) for up to 30 days. busPIRone 2021- No [id number] 10mg Take 1 Univers 10 mg 8-22 12- tablet by ity of tablet 00:00: 04:59 mouth 2 [place] 00 :00 (two) Medical times Branch daily as needed (anxiety) for up to 30 days. busPIRone 2021- No [id number] 10mg Take 1 Univers 10 mg 8-22 12- tablet by ity of tablet 00:00: 04:59 mouth 2 [place] 00 :00 (two) Medical times Branch daily as needed (anxiety) for up to 30 days. busPIRone 2021- No [id number] 10mg Take 1 Univers 10 mg 8-22 12- tablet by ity of tablet 00:00: 04:59 mouth 2 [place] 00 :00 (two) Medical times Branch daily as needed (anxiety) for up to 30 days. SERTraline Yes [id number] 50mg Take 1 U nivers (ZOLOFT) 50 7-08 tablet by ity of mg tablet 00:00: mouth [place] 00 daily. Medical Branch SERTraline Yes [id number] 50mg Take 1 U nivers (ZOLOFT) 50 7-08 tablet by ity of mg tablet 00:00: mouth [place] 00 daily. Medical Branch SERTraline 0 Yes [id number] 50mg Take 1 U nivers (ZOLOFT) 50 7-08 tablet by ity of mg tablet 00:00: mouth [place] 00 daily. Medical Branch SERTraline 0 Yes [id number] 50mg Take 1 U nivers (ZOLOFT) 50 7-08 tablet by ity of mg tablet 00:00: mouth [place] 00 daily. Medical Branch SERTraline 0 Yes [id number] 50mg Take 1 U nivers (ZOLOFT) 50 7-08 tablet by ity of mg tablet 00:00: mouth [place] 00 daily. Medical Branch SERTraline 0 Yes [id number] 50mg Take 1 U nivers (ZOLOFT) 50 7-08 tablet by ity of mg tablet 00:00: mouth [place] 00 daily. Medical Branch SERTraline 0 Yes [id number] 50mg Take 1 U nivers (ZOLOFT) 50 7-08 tablet by ity of mg tablet 00:00: mouth [place] 00 daily. Medical Branch SERTraline Yes [id number] 50mg Take 1 U nivers (ZOLOFT) 50 7-08 tablet by ity of mg tablet 00:00: mouth [place] 00 daily. Medical Branch SERTraline 0 Yes [id number] 50mg Take 1 U nivers (ZOLOFT) 50 7-08 tablet by ity of mg tablet 00:00: mouth [place] 00 daily. Medical Branch SERTraline 2022- No [id number] 50mg Take 1 Univers (ZOLOFT) 50 10-03 tablet by it y of mg tablet 00:00: 00:00 mouth [place] 00 :00 daily. Medical Branch SERTraline 0 2022- No [id number] 50mg Take 1 Univers (ZOLOFT) 50 10-03 tablet by it y of mg tablet 00:00: 00:00 mouth [place] 00 :00 daily. Medical Branch benzonatate Yes [id number] 100mg Take 1 Univers (TESSALON 1-06 capsule by ity of PERLES) 100 00:00: mouth [place] mg capsule 00 every 8 Medica l (eight) Branch hours as needed for Cough. azelastine Yes [id number] 1{spray Use 1 Univers 137 mcg 1-06 } [place] in ity of (0.1 %) 00:00: each [place] nasal spray 00 nostril 2 Med ical (two) Branch times daily. Use in each nostril as directed benzonatate 0 Yes [id number] 100mg Take 1 Univers (TESSALON 1-06 capsule by ity of PERLES) 100 00:00: mouth [place] mg capsule 00 every 8 Medica l (eight) Branch hours as needed for Cough. azelastine 2021-0 Yes [id number] 1{spray Use 1 Univers 137 mcg 1-06 } [place] in ity of (0.1 %) 00:00: each [place] nasal spray 00 nostril 2 Med ical (two) Branch times daily. Use in each nostril as directed benzonatate 2021-0 Yes [id number] 100mg Take 1 Univers (TESSALON 1-06 capsule by ity of PERLES) 100 00:00: mouth [place] mg capsule 00 every 8 Medica l (eight) Branch hours as needed for Cough. azelastine Yes [id number] 1{spray Use 1 Univers 137 mcg 1-06 } [place] in ity of (0.1 %) 00:00: each [place] nasal spray 00 nostril 2 Med ical (two) Branch times daily. Use in each nostril as directed benzonatate Yes [id number] 100mg Take 1 Univers (TESSALON 1-06 capsule by ity of PERLES) 100 00:00: mouth [place] mg capsule 00 every 8 Medica l (eight) Branch hours as needed for Cough. azelastine Yes [id number] 1{spray Use 1 Univers 137 mcg 1-06 } [place] in ity of (0.1 %) 00:00: each [place] nasal spray 00 nostril 2 Med ical (two) Branch times daily. Use in each nostril as directed benzonatate Yes [id number] 100mg Take 1 Univers (TESSALON 1-06 capsule by ity of PERLES) 100 00:00: mouth [place] mg capsule 00 every 8 Medica l (eight) Branch hours as needed for Cough. azelastine Yes [id number] 1{spray Use 1 Univers 137 mcg 1-06 } [place] in ity of (0.1 %) 00:00: each [place] nasal spray 00 nostril 2 Med ical (two) Branch times daily. Use in each nostril as directed benzonatate Yes [id number] 100mg Take 1 Univers (TESSALON 1-06 capsule by ity of PERLES) 100 00:00: mouth [place] mg capsule 00 every 8 Medica l (eight) Branch hours as needed for Cough. azelastine Yes [id number] 1{spray Use 1 Univers 137 mcg 1-06 } [place] in ity of (0.1 %) 00:00: each [place] nasal spray 00 nostril 2 Med ical (two) Branch times daily. Use in each nostril as directed benzonatate 2021-0 Yes [id number] 100mg Take 1 Univers (TESSALON 1-06 capsule by ity of PERLES) 100 00:00: mouth [place] mg capsule 00 every 8 Medica l (eight) Branch hours as needed for Cough. azelastine Yes [id number] 1{spray Use 1 Univers 137 mcg 1-06 } [place] in ity of (0.1 %) 00:00: each [place] nasal spray 00 nostril 2 Med ical (two) Branch times daily. Use in each nostril as directed benzonatate Yes [id number] 100mg Take 1 Univers (TESSALON 1-06 capsule by ity of PERLES) 100 00:00: mouth [place] mg capsule 00 every 8 Medica l (eight) Branch hours as needed for Cough. azelastine Yes [id number] 1{spray Use 1 Univers 137 mcg 1-06 } [place] in ity of (0.1 %) 00:00: each [place] nasal spray 00 nostril 2 Med ical (two) Branch times daily. Use in each nostril as directed benzonatate Yes [id number] 100mg Take 1 Univers (TESSALON 1-06 capsule by itfilemon of MERNASabre) 100 00:00: mouth [place] mg capsule 00 every 8 Medica l (eight) Branch hours as needed for Cough. azelastine Yes [id number] 1{spray Use 1 Univers 137 mcg 1-06 } [place] in ity of (0.1 %) 00:00: each [place] nasal spray 00 nostril 2 Med ical (two) Branch times daily. Use in each nostril as directed benzonatate 2022- No [id number] 100mg Take 1 Univers (TESSALON 1-09 04-28 capsule by itfilemon LIZ) 100 00:00: 00:00 [place] mg capsule 00 :00 every 8 Medica l (eight) Branch hours as needed for Cough. azelastine 2022- No [id number] 1{spray Use 1 Univers 137 mcg 1-06 09-28 } [place] in ity of (0.1 %) 00:00: 00:00 each [place] nasal spray 00 :00 nostril 2 Med ical (two) Branch times daily. Use in each nostril as directed benzonatate 2022- No [id number] 100mg Take 1 Univers (TESSALON 1- 09-28 capsule by ity of PERLES) 100 00:00: 00:00 [place] mg capsule 00 :00 every 8 Medica l (eight) Branch hours as needed for Cough. azelastine 3- No [id number] 1{spray Use 1 Univers 137 mcg 04-03 } [place] in ity of (0.1 %) 00:00: 00:00 each [place] nasal spray 00 :00 nostril 2 Med ical (two) Branch times daily. Use in each nostril as directed Immunizations Ordered Filled Date Status Comments Source Immunization Name Immunization Name TDAP 2021-06-03 Completed University of 00:00:00 [facility] [place] [facility] TDAP 2021-06-03 Completed University of 00:00: [facility] [place] [facility] TDAP 2021-06-03 Completed University of 00:00:00 [facility] [place] [facility] TDAP 2021-06-03 Completed University of 00:00:00 [facility] [place] [facility] TDAP 2021-06-03 Completed University of 00:00:00 [facility] [place] [facility] TDAP 2021-06-03 Completed University of 00:00:00 [facility] [place] [facility] TDAP 2021-06-03 Completed University of 00:00:00 [facility] [place] [facility] SARS-COV-2 COVID-19 2021-05-13 Completed Unive rsity of MODERNA 0.25ML 00:00:00 [place] Medi saritha BOOSTER VACCINE Branch SARS-COV-2 COVID-19 2021-05-13 Completed Unive rsity of MODERNA 0.25ML 00:00:00 [place] Medi saritha BOOSTER VACCINE Branch SARS-COV-2 COVID-19 2021-05-13 Completed Unive rsity of MODERNA 0.25ML 00:00:00 [place] Medi saritha BOOSTER VACCINE Branch SARS-COV-2 COVID-19 2021-05-13 Completed Unive rsity of MODERNA 0.25ML 00:00:00 [place] Medi saritha BOOSTER VACCINE Branch SARS-COV-2 COVID-19 2021-05-13 Completed Unive rsity of MODERNA 0.25ML 00:00:00 [place] Medi saritha BOOSTER VACCINE Branch SARS-COV-2 COVID-19 2021-05-13 Completed Unive rsity of MODERNA 0.25ML 00:00:00 [place] Medi saritha BOOSTER VACCINE Branch SARS-COV-2 COVID-19 2021-05-13 Completed Unive rsity of MODERNA 0.25ML 00:00:00 [place] Medi saritha BOOSTER VACCINE Branch SARS-COV-2 COVID-19 2020-07-22 Completed Unive rsity of MODERNA VACCINE 00:00:00 [place] Med ical Branch SARS-COV-2 COVID-19 2020-07-22 Completed Unive rsity of MODERNA VACCINE 00:00:00 [place] Med ical Branch SARS-COV-2 COVID-19 2020-07-22 Completed Unive rsity of MODERNA 12+ YRS 00:00:00 [place] Med ical VACCINE Branch SARS-COV-2 COVID-19 2020-07-22 Completed Unive rsity of MODERNA 12+ YRS 00:00:00 [place] Med ical VACCINE Branch SARS-COV-2 COVID-19 2020-07-22 Completed Unive rsity of MODERNA 12+ YRS 00:00:00 [place] Med ical VACCINE Branch SARS-COV-2 COVID-19 2020-07-22 Completed Unive rsity of MODERNA 12+ YRS 00:00:00 [place] Med ical VACCINE Branch SARS-COV-2 COVID-19 2020-07-22 Completed Unive rsity of MODERNA 12+ YRS 00:00:00 [place] Med ical VACCINE Branch SARS-COV-2 COVID-19 2020-06-24 Completed Unive rsity of MODERNA VACCINE 00:00:00 [place] Med ical Branch SARS-COV-2 COVID-19 2020-06-24 Completed Unive rsity of MODERNA VACCINE 00:00:00 [place] Med ical Branch SARS-COV-2 COVID-19 2020-06-24 Completed Unive rsity of MODERNA 12+ YRS 00:00:00 [place] Med ical VACCINE Branch SARS-COV-2 COVID-19 2020-06-24 Completed Unive rsity of MODERNA 12+ YRS 00:00:00 [place] Med ical VACCINE Branch SARS-COV-2 COVID-19 2020-06-24 Completed Unive rsity of MODERNA 12+ YRS 00:00:00 [place] Med ical VACCINE Branch SARS-COV-2 COVID-19 2020-06-24 Completed Unive rsity of MODERNA 12+ YRS 00:00:00 [place] Med ical VACCINE Branch SARS-COV-2 COVID-19 2020-06-24 Completed Unive rsity of MODERNA 12+ YRS 00:00:00 [place] Med ical VACCINE Branch TDAP 2012-03-29 Completed University of 00:00:00 [place] [facility] TDAP 2012-03-29 Completed University of 00:00:00 [place] [facility] TDAP 2012-03-29 Completed University of 00:00:00 [place] [facility] TDAP 2012-03-29 Completed University of 00:00:00 [place] [facility] TDAP 2012-03-29 Completed University of 00:00:00 [place] [facility] TDAP 2012-03-29 Completed University of 00:00:00 [place] [facility] TDAP 2012-03-29 Completed University of 00:00:00 [facility] Branch SARS-COV-2 COVID-19 Unknown Completed Unive rsity of MODERNA 12+ YRS [place] Med ical VACCINE Branch SARS-COV-2 COVID-19 Unknown Completed Unive rsity of MODERNA 12+ YRS [place] Med ical VACCINE Branch TDAP Unknown Completed [facility] SARS-COV-2 COVID-19 Unknown Completed Unive rsity of MODERNA 0.25ML [place] Medi saritha BOOSTER VACCINE Branch TDAP Unknown Completed [facility] SARS-COV-2 COVID-19 Unknown Completed Unive rsity of VACCINE - (MODERNA) [place] [facility] SARS-COV-2 COVID-19 Unknown Completed Unive rsity of VACCINE - (MODERNA) [place] [facility] TDAP Unknown Completed [facility] SARS-COV-2 COVID-19 Unknown Completed Unive rsity of MODERNA 12+ YRS [place] Med ical VACCINE Branch SARS-COV-2 COVID-19 Unknown Completed Unive rsity of MODERNA 12+ YRS [place] Med ical VACCINE Branch TDAP Unknown Completed [facility] SARS-COV-2 COVID-19 Unknown Completed Unive rsity of MODERNA 0.25ML [place] Medi saritha BOOSTER VACCINE Branch TDAP Unknown Completed [facility] SARS-COV-2 COVID-19 Unknown Completed Unive rsity of VACCINE - (MODERNA) [place] [facility] SARS-COV-2 COVID-19 Unknown Completed Unive rsity of VACCINE - (MODERNA) [place] [facility] TDAP Unknown Completed [facility] SARS-COV-2 COVID-19 Unknown Completed Unive rsity of MODERNA 12+ YRS [place] Med ical VACCINE Branch SARS-COV-2 COVID-19 Unknown Completed Unive rsity of MODERNA 12+ YRS [place] Med ical VACCINE Branch TDAP Unknown Completed [facility] SARS-COV-2 COVID-19 Unknown Completed Unive rsity of MODERNA 0.25ML [place] [facility] TDAP Unknown Completed [facility] SARS-COV-2 COVID-19 Unknown Completed Unive rsity of VACCINE - (MODERNA) [place] [facility] SARS-COV-2 COVID-19 Unknown Completed Unive rsity of VACCINE - (MODERNA) [place] [facility] TDAP Unknown Completed [facility] SARS-COV-2 COVID-19 Unknown Completed Unive rsity of MODERNA 12+ YRS [place] [facility] SARS-COV-2 COVID-19 Unknown Completed Unive rsity of MODERNA 12+ YRS [place] [facility] TDAP Unknown Completed [facility] SARS-COV-2 COVID-19 Unknown Completed Unive rsity of MODERNA 0.25ML [place] [facility] TDAP Unknown Completed [facility] SARS-COV-2 COVID-19 Unknown Completed Unive rsity of VACCINE - (MODERNA) [facility] [place] [facility] SARS-COV-2 COVID-19 Unknown Completed Unive rsity of VACCINE - (MODERNA) [place] [facility] TDAP Unknown Completed [facility] SARS-COV-2 COVID-19 Unknown Completed Unive rsity of MODERNA 12+ YRS [place] [facility] SARS-COV-2 COVID-19 Unknown Completed Unive rsity of MODERNA 12+ YRS [place] [facility] TDAP Unknown Completed [facility] SARS-COV-2 COVID-19 Unknown Completed Unive rsity of MODERNA 0.25ML [place] [facility] TDAP Unknown Completed [facility] SARS-COV-2 COVID-19 Unknown Completed Unive rsity of VACCINE - (MODERNA) [facility] [place] [facility] SARS-COV-2 COVID-19 Unknown Completed Unive rsity of VACCINE - (MODERNA) [place] [facility] TDAP Unknown Completed [facility] SARS-COV-2 COVID-19 Unknown Completed Unive rsity of MODERNA 12+ YRS [place] [facility] SARS-COV-2 COVID-19 Unknown Completed Unive rsity of MODERNA 12+ YRS [place] [facility] TDAP Unknown Completed [facility] SARS-COV-2 COVID-19 Unknown Completed Unive rsity of MODERNA 0.25ML [place] [facility] TDAP Unknown Completed [facility] SARS-COV-2 COVID-19 Unknown Completed Unive rsity of VACCINE - (MODERNA) [facility] [place] [facility] SARS-COV-2 COVID-19 Unknown Completed Unive rsity of VACCINE - (MODERNA) [place] [facility] TDAP Unknown Completed [facility] SARS-COV-2 COVID-19 Unknown Completed Unive rsity of MODERNA 12+ YRS [place] [facility] SARS-COV-2 COVID-19 Unknown Completed Unive rsity of MODERNA 12+ YRS [place] [facility] TDAP Unknown Completed [facility] SARS-COV-2 COVID-19 Unknown Completed Unive rsity of MODERNA 0.25ML [place] [facility] TDAP Unknown Completed [facility] SARS-COV-2 COVID-19 Unknown Completed Unive rsity of VACCINE - (MODERNA) [facility] [place] [facility] SARS-COV-2 COVID-19 Unknown Completed Unive rsity of VACCINE - (MODERNA) [place] [facility] TDAP Unknown Completed [facility] SARS-COV-2 COVID-19 Unknown Completed Unive rsity of MODERNA 12+ YRS [place] [facility] SARS-COV-2 COVID-19 Unknown Completed Unive rsity of MODERNA 12+ YRS [place] [facility] TDAP Unknown Completed [facility] SARS-COV-2 COVID-19 Unknown Completed Unive rsity of MODERNA 0.25ML [place] [facility] TDAP Unknown Completed [facility] SARS-COV-2 COVID-19 Unknown Completed Unive rsity of VACCINE - (MODERNA) [facility] [place] [facility] SARS-COV-2 COVID-19 Unknown Completed Unive rsity of VACCINE - (MODERNA) [place] [facility] TDAP Unknown Completed [facility] SARS-COV-2 COVID-19 Unknown Completed Unive rsity of MODERNA 12+ YRS [place] [facility] SARS-COV-2 COVID-19 Unknown Completed Unive rsity of MODERNA 12+ YRS [place] [facility] TDAP Unknown Completed [facility] SARS-COV-2 COVID-19 Unknown Completed Unive rsity of MODERNA 0.25ML [place] [facility]ACC[facility] TDAP Unknown Completed [facility] SARS-COV-2 COVID-19 Unknown Completed Unive rsity of VACCINE - (MODERNA) [facility] SARS-COV-2 COVID-19 Unknown Completed Unive rsity of VACCINE - (MODERNA) [facility] [place] [facility] TDAP Unknown Completed [facility] SARS-COV-2 COVID-19 Unknown Completed Unive rsity of MODERNA 12+ YRS [place] [facility] SARS-COV-2 COVID-19 Unknown Completed Unive rsity of MODERNA 12+ YRS [place] [facility] TDAP Unknown Completed [facility] SARS-COV-2 COVID-19 Unknown Completed Unive rsity of MODERNA 0.25ML [place] [facility]ACCINE [facility] TDAP Unknown Completed [facility] SARS-COV-2 COVID-19 Unknown Completed Unive rsity of VACCINE - (MODERNA) [facility] [place] [facility] SARS-COV-2 COVID-19 Unknown Completed Unive rsity of VACCINE - (MODERNA) [facility] [place] [facility] TDAP Unknown Completed [facility] Vital Signs Vital Name Observation Time Observation Value Comments Source Systolic blood 2023-01-25 19:31:00 166 mm[Hg] Univer sity of pressure [facility] [place] [facility] Diastolic blood 2023-01-25 19:31:00 102 mm[Hg] Unive rsity of pressure [facility] [place] [facility] Heart rate 2023-01-25 19:30:00 86 /min [facility] Oxygen saturation in 2023-01-25 19:30:00 97 /min [facility] Arterial blood by [facility] Pulse oximetry Branch Systolic blood 2023-01-22 15:46:00 135 mm[Hg] Univer sity of pressure [facility] [place] [facility] Diastolic blood 2023-01-22 15:46:00 80 mm[Hg] Unive rsity of pressure [facility] [place] [facility] Heart rate 2023-01-22 15:45:00 80 /min [facility] Body temperature 2023-01-22 15:45:00 36.44 [facility] height 2023-01-22 15:45:00 154.9 cm [facility] Body weight 2023-01-22 15:45:00 59.648 kg [facility] [place] [facility] BMI 2023-01-22 15:45:00 24.85 kg/m2 [facility] [place] [facility] Oxygen saturation in 2023-01-22 15:45:00 99 /min [facility] Arterial blood by [place] [facility] Pulse oxim[facility] Branch Systolic blood 2022-12-24 16:17:00 103 mm[Hg] Univer sity of pressure [facility] [place] [facility] Diastolic blood 2022-12-24 16:17:00 68 mm[Hg] Unive rsity of pressure [facility] Heart rate 2022-12-24 16:12:00 63 /min [facility] [place] [facility] Body temperature 2022-12-24 16:12:00 36.22 Loly Univ ers[facility] [place] [facility] Body height 2022-12-24 16:12:00 154.9 cm [facility] [place] [facility] Body weight 2022-12-24 16:12:00 59.648 kg [facility] [place] [facility] BMI 2022-12-24 16:12:00 24.85 kg/m2 [facility] [place] [facility] Oxygen saturation in 2022-12-24 16:12:00 99 /min University of Arterial blood by [facility] saritha Pulse oximetry Branch Systolic blood 2022-04-27 17:13:00 134 mm[Hg] Univer sity of pressure [facility] [place] [facility] Diastolic blood 2022-04-27 17:13:00 80 mm[Hg] Unive rsity of pressure [facility] [place] [facility] Heart rate 2022-04-27 17:13:00 72 /min [facility] [place] [facility] Body temperature 2022-04-27 17:13:00 36.61 Loly Univ ersity [facility] [place] [facility] Body height 2022-04-27 17:13:00 152.4 cm [facility] [place] [facility] Body weight 2022-04-27 17:13:00 56.246 kg [facility] [place] [facility] BMI 2022-04-27 17:13:00 24.22 kg/m2 [facility] [place] [facility] Oxygen saturation in 2022-04-27 17:13:00 98 /min [facility] Arterial blood by [place] [facility] Pulse oximetry Branch Systolic blood 2021-11-21 19:18:00 134 mm[Hg] Univer sity of pressure [facility] Diastolic blood 2021-11-21 19:18:00 77 mm[Hg] Unive rsity of pressure [facility] Heart rate 2021-11-21 19:18:00 86 /min [facility] Body temperature 2021-11-21 19:18:00 36.67 Loly Univ ersity of [facility] Body height 2021-11-21 19:18:00 152.4 cm [facility] Body weight 2021-11-21 19:18:00 54.885 kg [facility] BMI 2021-11-21 19:18:00 23.63 kg/m2 [facility] Oxygen saturation in 2021-11-21 19:18:00 100 /min [facility] Arterial blood by [facility] Pulse oximetry [place] Procedures Procedure Date / Time Performed Performing Clinician [facility] e CONSENT/REFUSAL FOR 2022-12-24 16:09:06 Doctor Unassigned, No Un [facility] DIAGNOSIS AND Name [facility] TREATMENT US ABDOMEN LIMITED 2021-12-05 20:44:47 Lorie Sepulveda [facility] Encounters Start End Encounter Admission Attending Care Care Encounter Source Date/Time Date/Time Type Type Clinicians Facility Department ID 2023-02-05 2023-02-05 Outpatient LAMAR MONTILLA [facility] [id number] [facility] 14:40:00 14:40:00 LAMAR GALARZA [facility] 2023-01-25 2023-01-25 Clinic Michell [facility] 1.2.840.114 [id number] Univers 00:00:00 00:00:00 Assessment Formerly [facility] 350.1.13.10 [facility] [id number] Demian as RENE?BLEA [id number] [address] MEDICAL OFFICE BUILDING 2023-01-22 2023-01-22 Outpatient LAMAR MONTILLA [facility] [id number] Univers 10:40:00 11:34:03 LAMAR GALARZA [facility] 2023-01-22 2023-01-22 Office Michell [facility] 1.2.840.114 [id number] Univers 10:40:00 11:34:03 Visit Formerly [facility] 350.1.13.10 ity of [place] 4.2.7.2.686 Demian as RENE?BLEA [phone] [address] OFFICE [facility] 2023-01-08 2023-01-08 Refill Belindafilemon [facility] 1.2.840.114 [id number] Univers 00:00:00 00:00:00 [place] [facility] 350.1.13.10 ity of [place] 4.2.7.2.686 Demian as RENE?BLEA [phone] [address] OFFICE [facility] 2023-01-08 2023-01-08 Patient Doctor [facility] 1.2.840.114 [id number] Univers 00:00:00 00:00:00 Secure Msg Unassigned, HEALTH 350.1.13.10 ity of [place] 4.2.7.2.686 Demian as RENE?BLEA [phone] [address] 2023-01-01 2023-01-01 [facility] 1.2.840.1 [id number] Univers 15:30:00 15:45:00 Visit Michell [facility] 350.1.13.10 ity of [place] 4.2.7.2.686 Demian as RENE?BLEA [phone] [facility] [address] [facility] OFFICE [facility] 2023-01-01 2023-01-01 Outpatient R LAMAR GALARZA [facility] [id number] Univers 15:30:00 13:40:[address] [facility] 2022-12-24 2022-12-24 Outpatient R MICHELL [facility] [id number] Univers 11:20:00 12:37:[address] [facility] 2022-12-24 2022-12-24 Office [facility] 1.2.840.114 [id number] Univers 11:20:00 12:00:00 Visit Formerly [facility] 350.1.13.10 ity of [place] 4.2.7.2.686 Demian as RENE?BLEA [phone] Me dical [address] MEDICAL OFFICE [facility] 2022-12-24 2022-12-24 Orders Doctor JUANPABLO 1.2.840.114 [id number] Univers 00:00:00 00:00:00 Only Unassigned, RHINA 350.1.13.10 ity of [place] [facility] 4.2.7.2.[address] Demian as [phone] [facility] [address] [place] 2022-12-17 2022-12-17 Pre Visit ROSA MARIA Gibson 1.2.115.706 [id number] Univers 00:00:00 00:00:00 Outreach Sari L MALDONADO 350.1.13.10 i [place] [id number] [facility] [address] [place] 2022-11-23 2022-11-23 Outpatient R ANTONIO [facility] [id number] Univers 11:30:00 11:30:00 RAQUEL ramirze [facility] 2022-11-05 2022-11-05 Outpatient R MIMI MAYO [facility] B [id number] Univers 10:00:00 10:00:00 MIMI MAYO [facility] 2022-04-27 2022-04-27 Outpatient R DERICK [facility] [id number] Univers 11:00:00 11:42:08 LORIE ramirez [facility] 2022-04-27 2022-04-27 Office Derick [facility] 1.2.840.114 [id number] Univers 11:00:00 11:42:08 Visit Lorie TOM 350.1.13.10 it y of [place] 4.2.7.2.686 Demian as RENE?BLEA [id number] [address] MEDICAL OFFICE [facility] 2022-02-04 2022-02-04 Outpatient R DERICK [facility] [id number] Univers 11:30:00 11:30:00 LORIE ramirez [facility] 2022-02-02 2022-02-02 Outpatient Michelle SEPULVEDA [facility] [id number] Univers 11:00:00 11:00:00 LORIE ramirez [facility] 2021-12-05 2021-12-05 [facility] [id number] Univers 15:09:05 23:59:00 LORIE ramirez [facility] 2021-12-05 2021-12-05 [facility] 1.2.840.114 [id number] Univers 15:09:05 23:59:00 Encounter Lorie MONROE 350.1.13.10 ity of [place] 4.2.7.2.686 [id number] [address] [place] 2021-12-03 2021-12-03 [facility] 1.2.036.396 [id number] Univers 00:00:00 00:00:00 Lorie HEALTH 350.1.13.10 it y of [place] 4.2.7.2.686 Demian as RENE?BLEA [id number] [facility] [address] [place] MEDICAL OFFICE [facility] 2021-11-28 2021-11-28 Deliver Driver [facility], [facility] 1.2.840.1 14 [id number] Univers 13:30:00 13:45:00 Visit Lorie Sepulveda 350.1.13.10 ity of [place] 4.2.7.2.686 Demian as RENE?BLEA [id number] [facility] [address] [place] MEDICAL OFFICE [facility] 2021-11-28 2021-11-28 Outpatient Michelle SEPULVEDA [facility] [id number] Univers 13:30:00 13:30:00 LORIE ramirez [facility] 2021-11-25 2021-11-25 Outpatient Michelle ALVAREZ [facility] [id number] Univers 08:00:00 08:00:00 RAQUEL ramirez [facility] 2021-11-25 2021-11-25 Outpatient Michelle ALVAREZ [facility] [id number] Univers 08:00:00 08:00:00 RAQUEL ramirez [facility] 2021-11-21 2021-11-21 Outpatient Michelle SEPULVEDA [facility] [id number] Univers 14:00:00 14:49:29 LORIE ramirez [facility] 2021-11-21 2021-11-21 [facility] 1.2.840.114 [id number] Univers 14:00:00 14:49:29 Visit Lorie HEALTH 350.1.13.10 it y of [place] 4.2.7.2.686 Demian as RENE?BLEA [id number] [address] OFFICE [facility] 2021-11-21 2021-11-21 Orders Doctor JUANPABLO 1.2.840.114 [id number] Univers 00:00:00 00:00:00 Only Unassigned, RHINA 350.1.13.10 ity of [place] [facility] 4.2.7.2.686 Demian as [id number] [address] 2021-10-03 2021-10-03 Outpatient KATY PEREZ [id number] [place] 13:30:00 13:30:00 MAX du 2021-10-03 2021-10-03 [facility] 1.2.840.114 [id number] Univers 13:00:00 13:30:00 Visit Lorie HEALTH 350.1.13.10 it y of [place] 4.2.7.2.686 Demian as RENE?BLEA [id number] [address] OFFICE [facility] 2021-10-03 2021-10-03 Outpatient R DERICK [facility] [id number] Univers 13:00:00 13:00:00 LORIE ramirez [facility] 2021-10-03 2021-10-03 Outpatient R DERICK [facility] [id number] Univers 13:00:00 13:00:00 LORIE ramirez [facility] 2021-09-26 2021-09-26 Outpatient R TRINO [facility] [id number] Univers 07:00:00 07:00:00 CHELSEY james [facility] 2021-09-23 2021-09-23 Telephone Silvia [facility] 1.2.840.114 [id number] Univers 00:00:00 00:00:00 Wondiful A HEALTH 350.1.13.10 ity of [place] 4.2.7.2.686 Demian as RENE?BLEA [id number] [address] MEDICAL OFFICE [facility] 2021-09-22 2021-09-22 Outpatient KATY PEREZ KATY [id number] [place] 11:30:00 11:30:00 MAX du 2021-07-23 2021-07-23 Outpatient KATY PEREZ KATY [id number] [place] 11:00:00 11:00:00 AMX du 2021-06-12 2021-06-12 Telephone Team, [facility] JUANPABLO 1.2.840.114 [id number] Univers 00:00:00 00:00:00 Health RHINA 350.1.13.10 it y [facility] 4.2.7.2.686 [place] [phone] [address] 2021-05-13 2021-05-13 Imm/Inj Vaccine, Ang Db Cbc Fam [facility] 1. 2.840.114 [id number] Univers 16:00:00 16:10:00 Visit Jasmine De La Cruz HEALTH 350.1.13.1 0 ity [facility] 4.2.7.2.686 Demian as RENE?BLEA [id number] [address] MEDICAL OFFICE [facility] 2021-05-13 2021-05-13 Outpatient R SILVIA [facility] [id number] Univers 16:00:00 16:00:00 WONDIFUL ity o f [facility] 2021-05-02 2021-05-02 Outpatient R SILVIA [facility] [id number] Univers 13:45:00 13:45:00 WONDIFUL ity o f [facility] 2021-04-30 2021-04-30 Outpatient R TRINO [facility] [id number] Univers 11:30:00 11:30:00 CHELSEY ity [facility] 2021-04-03 2021-04-03 Outpatient R TRINO [facility] [id number] Univers 14:54:49 23:59:00 CHELSEY ity [facility] 2021-04-03 2021-04-03 [facility] 1.2.840.114 [id number] Univers 14:54:49 23:59:00 Encounter Chelsey A HEALTH 350.1.13.10 ity of [place] 4.2.7.2.686 Demian as RENE?BLEA [id number] Me kecia LICEA [address] MEDICAL OFFICE [facility] 2021-04-03 2021-04-03 Outpatient R TRINO, [facility] [id number] Univers 14:00:00 14:52:04 CHELSEY ramirez [facility] 2021-04-03 2021-04-03 Office [facility] 1.2.840.114 [id number] Univers 14:00:00 14:52:04 Visit Chelsey Paula HEALTH 350.1.13.10 i ty [facility] 4.2.7.2.686 Demian as RENE?BLEA [id number] Me kecia LICEA [address] [facility] OFFICE [facility] 2021-04-02 2021-04-02 Outpatient R JASON III, [facility] [id number] Univers 12:15:00 12:30:[address] [facility] 2021-04-02 2021-04-02 Laboratory Only, Ang Db Test [facility] 1.2.8 40.114 [id number] Univers 12:15:00 12:30:00 Only Isaak Braden HEALTH 350.1.13.10 ity [facility] 4.2.7.2.686 Demian as RENE?BLEA [id number] Nv kecia LICEA [address] [facility] OFFICE [facility] 2021-04-02 2021-04-02 Outpatient R JASON III, [facility] [id number] Univers 12:15:00 12:15:[address] [facility] 2021-04-01 2021-04-01 Outpatient Michelle HOUSTON [facility] [id number] Univers 09:00:00 09:00:[address] [facility] 2021-04-01 2021-04-01 Outpatient Michelle [facility] [id number] Univers 09:00:00 09:00:00 [facility] 2021-03-31 2021-03-31 Outpatient Michelle [facility] [id number] Univers 12:30:00 12:30:00 [facility] 2021-02-06 2021-02-06 Orders Doctor JUANPABLO 1.2.840.114 [id number] Univers 00:00:00 00:00:00 Only Unassigned, RHINA 350.1.13.10 ity of [place] [facility] 4.2.7.2.686 Demian as [id number] [address] 2021-01-21 2021-01-21 Telephone [facility] 1.2.840.114 [id number] Univers 00:00:00 00:00:00 Wondiful A Health 350.1.13.10 ity of [place] 4.2.7.2.686 Demian as Rene?Blea [id number] [address] Medical Office Building 2021-01-02 2021-01-02 [facility] 1.2.433.046 [id number] Univers 15:00:00 23:59:00 Encounter Wondiful A Black 350.1.13.10 ity of [place] 4.2.7.2.686 [place] [facility] [id number] [address] 2021-01-02 2021-01-02 Out[facility] [id number] Univers 00:00:00 00:00:00 WONDIFUL ity o f [facility] 2021-01-02 2021-01-02 Orders Doctor JUANPABLO 1.2.840.114 [id number] Univers 00:00:00 00:00:00 Only Unassigned, RHINA 350.1.13.10 ity of [place] [facility] 4.2.7.2.686 Demian as [id number] [address] 2020-12-20 2020-12-20 Telephone [facility] 1.2.840.114 [id number] Univers 00:00:00 00:00:00 Wondiful A Health 350.1.13.10 ity of [place] 4.2.7.2.686 Demian as Rene?Blea [id number] [address] Medical Office Building 2020-12-16 2020-12-16 Outpatient [facility] [id number] Univers 08:30:00 08:30:00 WONDIFUL ity o f [facility] 2020-12-06 2020-12-06 Outpatient R [facility] [id number] Univers 12:45:00 12:45:00 ity of [facility] 2020-12-06 2020-12-06 [facility], Ang - Db [facility] 1.2.840.1 [id number] Univers 12:11:57 12:39:34 Visit Jasmine De La [facility] Health 350.1.13.1 0 ity of [place] 4.2.7.2.686 Demian as Rene?Blea [id number] Nv kecia licea [address] Medical Office Building 2020-11-27 2020-11-27 Outpatient [facility] [id number] Univers 00:00:00 00:00:00 WONDIFUL ity o f [facility] 2020-11-19 2020-11-19 [facility] 1.2.840.114 [id number] Univers 11:18:26 12:10:32 Visit Jasmine Paula Health 350.1.13.10 ity of [place] 4.2.7.2.686 Demian as Rene?Blea [id number] [facility] [address] Medical Office Building 2020-11-19 2020-11-19 Outpatient [facility] [id number] Univers 11:15:00 11:15:00 WONDIFUL ity o f [facility] 2020-09-16 2020-09-16 [facility] [id number] [id number] Univers 10:28:11 23:59:00 Encounter Jessica Monroe 350.1.13.10 it[place] of [place].2.[place] [id number] [facility] [address] [place] 2020-09-16 2020-09-16 Outpatient R [facility] [id number] Univers 00:00:00 00:00:00 JESSICA ity o f [facility] 2020-09-16 2020-09-16 Orders Doctor GERONIMO 1.2.840.114 [id number] Univers 00:00:00 00:00:00 Only Unassigned, RHINA 350.1.13.10 ity of [place] [facility] 4.2.7.2.686 Demian as [id number] [address] 2020-09-05 2020-09-05 [facility] 1.2.840.114 [id number] Univers 11:05:51 11:35:51 Visit Jessica Monroe 350.1.13.10 it[place] of [place].2.[place] [id number] [address] 2020-09-05 2020-09-05 Outpatient R [facility] [id number] Univers 11:00:00 11:00:00 JESSICA ity o f [facility] 2020-07-24 2020-07-24 [facility]phone [facility] 1.2.840.114 [id number] Univers 00:00:00 00:00:00 Wondiful A Health 350.1.13.10 ity of [place] 4.2.7.2.686 Demian as Professio [phone] [address] Office [facility] 2020-07-23 2020-07-23 Outpatient R SILVIA [facility] [id number] Univers 08:30:00 08:30:00 WONDIFUL ity o [facility] 2019-07-17 2019-07-17 [facility] [id number] Univers 11:15:00 11:15:00 WONDIFUL ity o f [facility] 2019-07-17 2019-07-17 [facility] [id number] Univers 07:22:54 07:37:54 ne Visit Wondiful A [place] [id number] [id number] [id number] [address] 2019-06-23 2019-06-23 Outpatient R SILVIA [facility] [id number] Univers 13:00:00 13:00:00 WONDIFUL ity o f [facility] 2019-06-22 2019-06-22 Edwin DE LA CRUZ, [facility] [id number] [facility] 14:30:00 14:30:00 WONDIJENNI batista [facility] Results This patient has no known results.
[2023-01-25 17:55] LABS: Protime INR 1.09
[2023-01-25 17:56] LABS: Absolute Lymphocytes (CBC) 1.8 K/uL (0.7-4.9); Hematocrit 38.9 % (36.0-45.0); Lymphocytes % 30.4 % (15.3-44.8); MCV 88.9 fL (80-100); MPV 7.5 fL (7.6-11.3); Platelets 300 thou/uL (152-406); RBC Red Blood Cell Count 4.38 M/uL (3.86-4.86)
[2023-01-25 18:09] LABS: Bilirubin Direct 0.1 mg/dL (0-0.2); Bilirubin Indirect, Calculated 0.3 mg/dL (0.2-0.8); Bilirubin Total 0.4 mg/dL (0.2-1.0); Magnesium 2.2 mg/dL (1.6-2.4); Potassium 3.3 mEq/L (3.5-5.1); Protein, Total 8.1 g/dL (6.4-8.2); Troponin High Sensitivity 3.7 pg/mL (<58.9)
--- NOTE | 2023-01-25 18:26 | RAD REPORT ---
EXAM DESCRIPTION: RAD - Chest Single View - 01/25/2023 6:18 pm CLINICAL HISTORY: CHEST PAIN Chest pain. COMPARISON: Chest Single View dated 05/12/2021; CHEST PA AND LAT 2 VIEW dated 03/15/2012; CHEST PA AN D LAT 2 VIEW dated 06/03/2011 FINDINGS: Portable technique limits examination quality. The lungs are grossly clear. The heart is normal in size. No displaced fractures. IMPRESSION: No acute intrathoracic process suspected.
--- NOTE | 2023-01-25 18:43 | RAD REPORT ---
EXAM DESCRIPTION: CT - Head Brain Wo Cont - 01/25/2023 6:33 pm CLINICAL HISTORY: Dizziness;Headache Headache, hypertension, drowsiness COMPARISON: <Comparisons> TECHNIQUE: All CT scans are performed using dose optimization technique as appropriate and may inclu de automated exposure control or mA/KV adjustment according to patient size. FINDINGS: No intracranial hemorrhage, hydrocephalus or extra-axial fluid collection.No areas of brai n edema or evidence of midline shift. The paranasal sinuses and mastoids are clear. The calvarium is intact. IMPRESSION: No acute intracranial abnormality.
[2023-01-25] MEDS ORDERED: MECLIZINE HCL 12.5 MG TAB ONE (19:28)
[2023-01-25] MEDS ORDERED: ASPIRIN 81 MG CHEWABLE TABLET ONE (19:28)
[2023-01-25] MEDS ORDERED: POTASSIUM 25 MEQ EFFERV TAB ONE (19:28)
[2023-01-25] MEDS ORDERED: ACETAMINOPHEN 325 MG TABLET ONE (19:28)
--- NOTE | 2023-01-25 20:02 | ER ---
Nurse's Notes [facility] Name: Nai Weber Age: 52 yrs Sex: Female : 1970 Arrival Date: 01/25/2023 Time: 16:26 Bed 10 Private MD: Diagnosis: Elevated blood-pressure reading, without diagnosis of hypertension;Dizziness and giddiness;Headache;Hypokalemia Presentation: 01/25 16:46 Chief complaint: Patient states: she took her blood pressure today and it was in the ap3 160's systolic. patient reports she has been taking daily log of her blood pressure for her PCP and it has been getting higher. She was unable to get in to see her PCP today. Patient states she has not been dx with HTN nor is she on medication at this time. Patient reports a headache for approx a week with mild dizziness. Coronavirus screen: At this time, the client does not indicate any symptoms associated with coronavirus-19. Ebola Screen: No symptoms or risks identified at this time. Initial Sepsis Screen: Does the patient meet any 2 criteria? No. Patient's initial sepsis screen is negative. Does the patient have a suspected source of infection? No. Patient's initial sepsis screen is negative. Risk Assessment: Do you want to hurt yourself or someone else? Patient reports no desire to harm self or others. Onset of symptoms was January 18, 2023. 16:46 Method Of Arrival: Ambulatory ap3 16:46 Acuity: BHANU 3 ap3 Triage Assessment: 16:50 Headache History: The patient has had previous headaches. General: Appears in no ap3 apparent distress. Behavior is calm, cooperative, appropriate for age. Pain: Complains of pain in head Pain currently is 4 out of 10 on a pain scale. Pain began a week ago Is intermittent, Also complains of. Neuro: Level of Consciousness is awake, alert, obeys commands, Oriented to person, place, time, situation, Reports headache. Cardiovascular: Patient's skin is warm and dry. Respiratory: Airway is patent Respiratory effort is even, unlabored, Respiratory pattern is regular, symmetrical. Historical: - Allergies: 16:48 No Known Allergies; ap3 - Home Meds: 16:48 tizanidine oral [Active]; ap3 - PMHx: 16:48 None; ap3 - Immunization history:: Client reports receiving the 2nd dose of the Covid vaccine. - Social history:: Smoking status: Patient denies any tobacco usage or history of. Screenin:51 Abuse screen: Denies threats or abuse. Nutritional screening: No deficits noted. ap3 Tuberculosis screening: No symptoms or risk factors identified. 20:21 [facility] ED Fall Risk Assessment (Adult) History of falling in the last 3 months, bp including since admission No falls in past 3 months (0 pts). Assessment: 20:21 Reassessment: DC HOME AMBULATORY WITH FAMILY. Pain: Denies pain. bp Vital Signs: 16:46 BP 161 / 91; Pulse 93; Resp 18; Temp 98.1; Pulse Ox 100% ; Weight 59.42 kg; Pain 4/10; ap3 18:54 BP 133 / 87; Pulse 81; Resp 17; Pulse Ox 99% on R/A; os 20:21 BP 135 / 87; Pulse 75; Resp 16; Pulse Ox 99% ; bp 16:46 Pain Scale: Adult ap3 ED Course: 16:27 Patient arrived in ED. rg4 16:40 Avery Jade PA is PHCP. cp 16:40 Deven Lugo MD is Attending Physician. cp 16:48 Triage completed. ap3 16:51 Arm band placed on right wrist. ap3 17:18 Nancie Crow, RN is Primary Nurse. os 17:56 Basic Metabolic Panel Sent. os 17:56 CBC with Diff Sent. os 17:56 LFT's Sent. os 17:56 Magnesium Sent. os 17:56 PT-INR Sent. os 17:56 Troponin HS Sent. os 17:56 No provider procedures requiring assistance completed. Inserted saline lock: 20 gauge os in right antecubital area, using aseptic technique. 18:19 XRAY Chest (1 view) In Process Unspecified. EDMS 18:35 CT Head Brain wo Cont In Process Unspecified. EDMS 20:21 Patient has correct armband on for positive identification. Bed in low position. Call bp light in reach. Adult w/ patient. Provided Education on: N/A. 20:21 IV discontinued, intact, bleeding controlled, No redness/swelling at site. Pressure bp dressing applied. Administered Medications: 19:19 Drug: Acetaminophen PO 650 mg PO once Route: PO; me1 20:23 Follow up: Response: No adverse reaction bp 19:19 Drug: Meclizine PO 25 mg PO once Route: PO; me1 20:23 Follow up: Response: No adverse reaction bp 19:19 Drug: Potassium PO Effervescent Tablet 50 mEq PO once; dissolve in 4 ounces of water or me1 juice Route: PO; 20:23 Follow up: Response: No adverse reaction bp 19:19 Drug: Aspirin PO 81 mg PO once Route: PO; me1 20:22 Follow up: Response: No adverse reaction bp Medication: 20:21 VIS not applicable for this client. bp Outcome: 20:01 Discharge ordered by . cp 20:21 Discharged to home ambulatory, with family, bp 20:21 Condition: stable 20:21 Discharge instructions given to patient, family, Instructed on discharge instructions, follow up and referral plans. Demonstrated understanding of instructions, follow-up care, 20:23 Patient left the ED. bp Signatures: Dispatcher [employer] EDMS Avery Jade PA PA cp Garcia, Rubi rg4 Tevin Grossman RN RN bp Cathy Aburto RN RN ap3 Nancie Crow RN RN os Breanne Boston RN RN me1
--- NOTE | 2023-01-25 20:02 | EDPHYS ---
Physician Documentation [facility] Name: Nai Weber Age: 52 yrs Sex: Female : 1970 Arrival Date: 01/25/2023 Time: 16:26 Bed 10 Private MD: ED Physician Deven Lugo HPI: 01/25 17:15 This 52 yrs old Female presents to ER via Ambulatory with complaints of cp Dizziness, High Blood Pressure, Headache. 17:15 The patient presents with dizziness, headache. Onset: The symptoms/episode cp began/occurred 1 week(s) ago. Associated signs and symptoms: Pertinent positives: elevated blood pressure for the past several days, Pertinent negatives: abdominal pain, chest pain, shortness of breath. 17:15 Severity of symptoms: in the emergency department the symptoms are unchanged despite cp home interventions. Patient's baseline: Neuro: alert and fully oriented, Motor: no deficits, Ambulation: walks without assistance, Speech: normal. Historical: - Allergies: 16:48 No Known Allergies; ap3 - Home Meds: 16:48 tizanidine oral [Active]; ap3 - PMHx: 16:48 None; ap3 - Immunization history:: Client reports receiving the 2nd dose of the Covid vaccine. - Social history:: Smoking status: Patient denies any tobacco usage or history of. ROS: 17:20 Constitutional: Negative for body aches, chills, fever, poor PO intake, cp 17:20 Eyes: Negative for injury, pain, redness, and discharge, cp 17:20 ENT: Negative for drainage from ear(s), ear pain, sore throat, difficulty swallowing, difficulty handling secretions, 17:20 Neck: Negative for pain with movement, pain at rest, stiffness, 17:20 Cardiovascular: Negative for chest pain, edema, palpitations, 17:20 Respiratory: Negative for cough, shortness of breath, wheezing, 17:20 Abdomen/GI: Negative for abdominal pain, vomiting, diarrhea, constipation, 17:20 Back: Negative for pain at rest, pain with movement, 17:20 Neuro: Positive for dizziness, headache, Negative for altered mental status, numbness, tingling, weakness, Exam: 17:25 Constitutional: The patient appears in no acute distress, alert, awake, cp non-diaphoretic, non-toxic, well developed, well nourished, 17:25 Head/Face: Normocephalic, atraumatic. cp 17:25 Eyes: Periorbital structures: appear normal, Pupils: equal, round, and reactive to light and accomodation, Extraocular movements: intact throughout, Conjunctiva: normal, no exudate, no injection, Sclera: no appreciated abnormality, Lids and lashes: appear normal, bilaterally, 17:25 ENT: External ear(s): are unremarkable, Nose: is normal, Mouth: Lips: moist, Oral mucosa: pink and intact, moist, Posterior pharynx: is normal, airway is patent, no erythema, no exudate, 17:25 Neck: ROM/movement: is normal, is supple, without pain, no range of motions limitations, 17:25 Chest/axilla: Inspection: normal, 17:25 Cardiovascular: Rate: normal, Rhythm: regular, Heart sounds: murmur, not appreciated, Edema: is not appreciated, JVD: is not appreciated, 17:25 Respiratory: the patient does not display signs of respiratory distress, Respirations: normal, no use of accessory muscles, no retractions, labored breathing, is not present, Breath sounds: are clear throughout, no decreased breath sounds, no stridor, no wheezing, 17:25 Abdomen/GI: Inspection: abdomen appears normal, Palpation: abdomen is soft and non-tender, in all quadrants, 17:25 Back: pain, is absent, ROM is normal, 17:25 Neuro: Orientation: to person, place \T\ time. Mentation: is normal, Cerebellar function: is grossly normal, Motor: moves all fours, strength is normal, Sensation: is normal, 17:37 ECG was reviewed by the Attending Physician. cp Vital Signs: 16:46 BP 161 / 91; Pulse 93; Resp 18; Temp 98.1; Pulse Ox 100% ; Weight 59.42 kg; Pain 4/10; ap3 18:54 BP 133 / 87; Pulse 81; Resp 17; Pulse Ox 99% on R/A; os 20:21 BP 135 / 87; Pulse 75; Resp 16; Pulse Ox 99% ; bp 16:46 Pain Scale: Adult ap3 MDM: 16:59 Patient medically screened. cp 18:30 Differential diagnosis: CVA, generalized weakness, GI bleed, hypovolemia, idiopathic cp dizziness, , TIA, vertigo. 20:00 Data reviewed: vital signs, nurses notes, lab test result(s), EKG, radiologic studies, cp CT scan, plain films. 20:00 I considered the following discharge prescriptions or medication management in the emergency department Medications were administered in the Emergency Department. See MAR. Counseling: I had a detailed discussion with the patient and/or guardian regarding the historical points, exam findings, and any diagnostic results supporting the discharge/admit diagnosis, the presence of at least one elevated blood pressure reading (>120/80) during this emergency department visit, lab results, radiology results, the need for outpatient follow up, for definitive care, a family practitioner, to return to the emergency department if symptoms worsen or persist or if there are any questions or concerns that arise at home. Refusal of service: The patient/guardian displays adequate decision making capability and despite a detailed discussion of alternatives, benefits, risks, and consequences refuses: CT head angio and CT neck angio. 01/25 17:06 Order name: Basic Metabolic Panel; Complete Time: 18:19 01/25 18:19 Interpretation: Normal except: K 3.3; GLUC 131; GFR 76. 01/25 17:06 Order name: CBC with Diff; Complete Time: 18:19 01/25 17:06 Order name: LFT's; Complete Time: 18:19 01/25 17:06 Order name: Magnesium; Complete Time: 18:19 01/25 17:06 Order name: PT-INR; Complete Time: 18:19 01/25 17:06 Order name: Troponin HS; Complete Time: 18:19 01/25 17:06 Order name: XRAY Chest (1 view); Complete Time: 19:04 01/25 19:04 Interpretation: Report review. 01/25 17:06 Order name: CT Head Brain wo Cont; Complete Time: 19:04 01/25 19:05 Interpretation: Report reviewed. 01/25 17:06 Order name: EKG; Complete Time: 17:07 01/25 17:06 Order name: Cardiac monitoring; Complete Time: 17:55 01/25 17:06 Order name: EKG - Nurse/Tech; Complete Time: 17:55 01/25 17:06 Order name: IV Saline Lock; Complete Time: 17:55 01/25 17:06 Order name: Labs collected and sent; Complete Time: 17:56 cp 01/25 17:06 Order name: O2 Per Protocol; Complete Time: 17:56 cp 01/25 17:06 Order name: O2 Sat Monitoring; Complete Time: 17:56 cp EC:37 Rate is 73 beats/min. Rhythm is regular. NC interval is normal. QRS interval is normal. cp QT interval is normal. T waves are Inverted in lead aVR. Interpreted by me. Reviewed by me. Administered Medications: 19:19 Drug: Acetaminophen PO 650 mg PO once Route: PO; me1 20:23 Follow up: Response: No adverse reaction bp 19:19 Drug: Meclizine PO 25 mg PO once Route: PO; me1 20:23 Follow up: Response: No adverse reaction bp 19:19 Drug: Potassium PO Effervescent Tablet 50 mEq PO once; dissolve in 4 ounces of water or me1 juice Route: PO; 20:23 Follow up: Response: No adverse reaction bp 19:19 Drug: Aspirin PO 81 mg PO once Route: PO; me1 20:22 Follow up: Response: No adverse reaction bp Disposition Summary: 01/25/23 20:01 Discharge Ordered Notes: Location: Home cp Problem: new cp Symptoms: have improved cp Condition: Stable cp Diagnosis - Elevated blood-pressure reading, without diagnosis of hypertension cp - Dizziness and giddiness cp - Headache cp - Hypokalemia cp Followup: cp - With: Private Physician - When: 2 - 3 days - Reason: Recheck today's complaints Discharge Instructions: - Discharge Summary Sheet cp - Potassium Content of Foods cp - Dizziness cp - General Headache Without Cause cp - How to Take Your Blood Pressure, [id number] cp - Aspirin and Your Heart cp - Hypokalemia cp - Form - Blood Pressure Record Sheet cp Forms: - Medication Reconciliation Form cp - Thank You Letter cp - Antibiotic Education cp - Prescription Opioid Use cp - Patient Portal Instructions cp - Leadership Thank You Letter cp - Work release form [email or web address] Addendum: 01/27/2023 10:25 I was immediately available for consultation during this patient's visit. I did not e c2 personally see the patient or guide the patient's care.. Signatures: Dispatcher [employer] EDNV Avery Jade PA PA cp Prokisch, Amanda RN RN ap3 Breanne Boston RN RN me1 Deven Lugo MD MD ec2 Tevin Grossman RN bp Corrections: (The following items were deleted from the chart) 01/25 18:53 18:20 Head Angio+CT.RAD.BRZ ordered. EDMS EDMS 18:53 18:20 Neck Angio+CT.RAD.BRZ ordered. EDMS EDMS
[2023-01-25 20:55] VITALS: TEMP 98.1
[2023-01-25 21:00] VITALS: O2SAT 99
[2023-01-25 21:06] VITALS: BP 135/87
--- NOTE | 2023-01-27 18:08 | EKG ---
Test Date: 2023-01-25 Test Time: 17:31:10 [employer]: OS MEASUREMENT RESULTS: Intervals: Rate: 73 NE: 154 QRSD: 84 QT: 362 QTc: 398 [place]: P: 66 NE: 154 QRS: 70 T: 50 INTERPRETIVE STATEMENTS: Normal sinus rhythm Nonspecific ST abnormality Abnormal ECG Compared to ECG 05/12/2021 22:26:18 ST (T wave) deviation now present Electronically Signed On 01-27-23 18:04:20 CDT by Artie Parsons
== END 2023-01-25 20:23 | disposition home or self-care (01) ==
LOC: ER 16:26
DX: R03.0 Elevated blood-pressure reading, without diagnosis of hypertension (principal); E87.6 Hypokalemia; R42 Dizziness and giddiness; R51.9 Headache, unspecified
CPT/HCPCS: 93005; 85025; 80048; 36415; 83735; 85610; 80076; 84484; 70450; 71045; 99284; J8597